=== PATIENT | female | born 1990 | race Caucasian/White ===

== ENCOUNTER → 2019-08-08 14:39 | Outpatient (BNVA) | payer OTHER, SELFPAY | PROVIDERS: Referring Provider Obstetrics & Gynecology Female Pelvic Medicine and Reconstructive Surgery; Visit Provider Obstetrics & Gynecology Female Pelvic Medicine and Reconstructive Surgery | DX: O20.9 Hemorrhage in early pregnancy, unspecified (principal); Z3A.09 9 weeks gestation of pregnancy | CPT/HCPCS: 76817; 80307; 84315; 85027; 86592; 86762; 86803; 86850; 86900; 87086; 87340; 87806 ==

== ENCOUNTER → 2019-08-23 15:06 | Outpatient (BNVA) | payer OTHER, SELFPAY | PROVIDERS: Visit Provider Nurse Practitioner Women's Health | DX: Z01.89 Encounter for other specified special examinations (principal) | CPT/HCPCS: 84315 ==

== ENCOUNTER → 2019-09-03 16:05 | Outpatient (BNVA) | payer OTHER, SELFPAY | PROVIDERS: Visit Provider Obstetrics & Gynecology Female Pelvic Medicine and Reconstructive Surgery | DX: Z34.90 Encounter for supervision of normal pregnancy, unspecified, unspecified trimester (principal); Z3A.12 12 weeks gestation of pregnancy | CPT/HCPCS: 76801; 84315; 87491; 87591; 87661; 88175 ==

== ENCOUNTER → 2019-10-25 13:05 | Outpatient (BNVA) | payer OTHER, SELFPAY | PROVIDERS: PCP Nurse Practitioner Family; Visit Provider Obstetrics & Gynecology | DX: O09.892 Supervision of other high risk pregnancies, second trimester (principal); O21.2 Late vomiting of pregnancy; O99.332 Smoking (tobacco) complicating pregnancy, second trimester; F17.210 Nicotine dependence, cigarettes, uncomplicated; O99.322 Drug use complicating pregnancy, second trimester; F12.90 Cannabis use, unspecified, uncomplicated; O99.342 Other mental disorders complicating pregnancy, second trimester; F41.9 Anxiety disorder, unspecified; O99.89 Other specified diseases and conditions complicating pregnancy, childbirth and the puerperium; Z3A.20 20 weeks gestation of pregnancy | CPT/HCPCS: 76805 ==

== ENCOUNTER → 2019-11-22 14:38 | Outpatient (BNVA) | payer OTHER, SELFPAY | PROVIDERS: PCP Nurse Practitioner Family; Visit Provider Obstetrics & Gynecology | DX: O99.321 Drug use complicating pregnancy, first trimester (principal); O99.332 Smoking (tobacco) complicating pregnancy, second trimester; F17.210 Nicotine dependence, cigarettes, uncomplicated | CPT/HCPCS: 80307; 84315 ==

== ENCOUNTER 2019-12-08 01:00 | Inpatient (IN) | payer OTHER, SELFPAY ==
[2019-12-07 21:49] VITALS: RESP 20; TEMP 36.2
[2019-12-07 22:15] VITALS: RESP 20
[2019-12-07] MEDS: ondansetron 2 mg/ML SDV 2 mL 4 MG IVP (22:15)
[2019-12-07] MEDS: sodium chloride 0.9% 1,000 ML 999 ML IV (22:15)
[2019-12-07] MEDS: morphine 4 mg/mL SDV 1 mL IVP ×3 (22:15→23:56)
[2019-12-07 22:34] LABS: Basophils # 0.1 10^3/uL (0.0-0.1); Basophils % 0.3 %; Eosinophils # 0.1 10^3/uL (0.0-0.8); Eosinophils % 0.7 %; Hematocrit 31.3 % (37.0-47.0); Hemoglobin 10.6 g/dL (11.5-15.3); Lymphocytes # 1.6 10^3/uL (0.8-4.8); Lymphocytes % 10.6 %; Mean Corpuscular HGB Conc 33.9 g/dL (30.0-36.0); Mean Corpuscular Hemoglobin 33.5 pg (28.0-34.0); Mean Corpuscular Volume 99.1 fL (81-99); Mean Platelet Volume 11.5 fL (7.4-10.4); Monocytes % 6.9 %; Neutrophils # 12.1 10^3/uL (1.8-7.7); Neutrophils % 80.8 %; Nucleated Red Blood Cells % 0 %; Platelet Count 207 10^3/cmm (130-400); Red Blood Count 3.16 10^6/uL (4.1-5.3); Red Cell Distribution Width 13.2 % (12.1-15.1)
[2019-12-07 22:41] LABS: Urine Appearance Hazy (CLEAR); Urine Color Yellow (Yellow); pH Urine 7 (5-7)
[2019-12-07 22:42] LABS: Amorphous Sediment Urine 4+; Bilirubin Urine Neg (NEGATIVE); Blood Urine Neg (Negative); Glucose Urine UA Norm (Normal); Ketones Urine 1+ (Negative); Leukocyte Esterase Urine Negative (Negative); Nitrate Urine Negative (Negative); Protein Urine Neg (Negative); Urobilinogen Urine Norm (Negative)
[2019-12-07 22:43] LABS: Add Urine Culture? No; Bacteria Urine TRACE; Hyaline Casts Urine 0-4; RBC Urine 0-4 /hpf (0-2); Squamous Epithelial Cell Urine 0-4 (0-5)
[2019-12-07 23:23] VITALS: RESP 18
[2019-12-07] MEDS: dextrose 5%-lactated ringers 1,000 ML 250 ML IV (23:24)
[2019-12-07 23:56] VITALS: RESP 16
[2019-12-08] VITALS (24 sets, daily range): BP systolic 119–140; BP diastolic 67–85; PULSE 74–87; RESP 15–20; TEMP 36.6–36.8; O2SAT 96
[2019-12-08] MEDS: morphine 4 mg/mL SDV 1 mL IVP ×17 (00:55→23:19)
[2019-12-08] MEDS: ondansetron 2 mg/ML SDV 2 mL 4 MG IVP ×4 (02:47→11:40)
[2019-12-08] MEDS: dextrose 5%-lactated ringers 1,000 ML 250 ML IV ×5 (04:48→20:03)
--- NOTE | 2019-12-08 06:47 | USR_ITS ---
PROCEDURE INFORMATION: Exam: US Retroperitoneal; Complete; Kidneys and Bladder Exam date and time: 12/08/2019 8:04 AM Age: 29 years old Clinical indication: Abdominal pain; Flank; Right; ; Additional info: Right sided flank pain - rule out stone TECHNIQUE: Imaging protocol: Real-time ultrasound of the retroperitoneum with image documentation. Complete exam focused on the kidneys and bladder. COMPARISON: US OB >= 14 weeks fetus [id number] 10/25/2019 1:05 PM FINDINGS: Right kidney: Right kidney measures 13.5 cm in length. Moderate right hydronephrosis, with dilatation of the incompletely visualized right ureter, measuring 14 mm in diameter. Left kidney: Left kidney measures 12.3 cm in length. Mild left hydronephrosis. Aorta: Normal caliber of the visualized proximal/mid abdominal aorta, with obscuration of the distal abdominal aorta by bowel gas. Uterus: Intrauterine gestation in cephalic presentation. Bladder: Nondistended bladder with a left ureteral jet on color flow imaging. A right ureteral jet was not visualized. US/US renal BI* [id number] IMPRESSION: Asymmetric bilateral hydronephrosis, right greater than left, with absence of a right ureteral jet on color flow imaging.
--- NOTE | 2019-12-08 10:13 | P.HP_ITS ---
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 Patient presented at 21:38 on 12/07/2019 with complaint of right side pain. She reports that she had onset of the pain at approximately 16:00 yesterday which was initially mild but rapidly worsened. She stated the pain would come in waves with it being a 7-8 out of 10 in intensity at its worst and would get to be about a 3 out of 10 in intensity at its best. She reported that nothing was really helping with the pain. She had tried taking Tylenol without help. She reported feeling nauseated after the pain started, but no vomiting. She denied having pains like this in the past. This morning, she states the pain is still present. The pain medications improve it but does not take it completely away. She reports continued nausea and now with vomiting since arriving at the hospital. She reports baby has been moving well. She does not think she is having contractions. She denied leaking of fluid. She denied vaginal bleeding. care has been provided by Dr. Way at [facility]. has been complicated by prepregnancy anxiety, tobacco use, and use of medical marijuana . OB Labs 08/08/2019 Blood type: O Positive Antibody screen: Negative Intake CBC: WBC 9.2 , Hgb 12.4, Hct 36.7, MCV 93.9, Plt 239. Rubella: 4.0--non-immune Hepatitis B surface antigen: Non-reactive Hepatitis C antibody: Non-reactive RPR: Nonreactive HIV: Non-reactive Urine drug screen: [facility] Positive Urine culture: 10,00-20,000 CFU, mixed organisms. Cystic fibrosis: Declines Panorama: Declines 09/03/2019 Gonorrhea: Negative. Chlamydia: Negative. Pap smear: Negative for intraepithelial lesion or malignancy. 09/26/2019 Quad screen: Declined. 11/22/2019 Urine drug screen: Positive THC. OB Ultrasound LMP 06/19/2019 ---> EDC 03/25/2020 (use first ultrasound for dating). 1. 08/03/2019 ---> 8-27 WG ---> EDC 03/12/2020. Use this ultrasound for dating. Performed at [facility]. 2. 08/08/2019 ---> 9-2/7 WG ---> EDC 03/10/2020. Performed at [facility]. CRL 2.52 cm. FHR 161 bpm. Large subchorionic hematoma measuring 4.6 x 1.6 cm. 3. 09/03/2019 ---> 12-5/7 WG ---> EDC 03/12/2020. Performed at [facility]. CRL 6.28 cm. FHR 142 bpm. Subchorionic hematoma measuring 5 to 8 mm. 4. 10/25/2019 ---> 20-2/7 WG ---> EDC 03/11/2020. EFW 12 oz (345 g) 54%. Performed at [facility]. Consistent with dates. Normal anatomic survey EXCEPT for poor visualization of kidneys. Female. Variable presentation. FHR 140 bpm. Fundal, right lateral placenta without previa. Grade 1. FISH CULTURIST 5.2 cm. Review of Systems Const: Denies: fever(s) or chills ENMT: Denies: throat pain or nasal congestion Card: Denies: chest pain, palpitations or lightheadedness Resp: Denies: dyspnea, productive cough, non-productive cough or wheezing GI: Reports: abdominal pain, nausea and vomiting; Denies: diarrhea or constipation : Denies: difficulty voiding, dysuria, urinary frequency, urinary urgency, hematuria, genital pruritis, vaginal bleeding or vaginal discharge Musc: Reports: back pain Neuro: Denies: headache(s), dizziness or seizure-like activity Psych: Reports: anxiety; Denies: depression Endo: Denies: polyuria or polydipsia Patrick/Lymph: Denies: easy bruising or easy bleeding Medications/Allergies Home Medications Medication Instructions Recorded Confirmed Last Taken Type vitamin #56-iron 35 mg 1 cap PO DAILY #30 cap 08/08/19 11/22/19 Unknown Rx and 5 mg-folic acid 1 mg-dha capsule ascorbate calcium (vitamin C) 500 500 mg PO DAILY 09/26/19 11/22/19 Unknown History mg tablet ferrous sulfate 325 mg (65 mg 325 mg PO DAILY 10/25/19 11/22/19 Unknown History iron) tablet,delayed release Allergies Allergy/AdvReac Type Severity Reaction Status Date / Time buspirone [From BuSpar] Allergy migraines Verified 11/22/19 14:35 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 PFSH: Medical History Anxiety Using medical marijuana Asthma PTSD (post-traumatic stress disorder) Surgical History Closed left arm fracture (~2000) Family History Grandmother Colon cancer great grandmother maternal Grandfather Heart disease maternal Social History (Updated 12/08/19 @ 10:[address] MD) Smoking and tobacco status: current every day smoker cigarettes Packs smoked per day: 0.5 [ Other cigarette details: started out at 3/4 ppd ] Alcohol intake: never Substance/Drug Use: current Substance/Drug use frequency: daily Other substance/drug use details: Medical marijuana Other Female Reproductive History: Hx Age of Menarche: 11 Duration of menses: 6-7 days Cycle Length: irregular 14-50 days Menstrual flow: normal/abnormal: abnormal History History History 1 Term 0 Miscarriages/Ectopic 0 0 Living Children 0 Care GONZALES Calculator Estimated Delivery Date Method Current WG Current Estimate 03/12/20 Ultrasound #1 26w 3d Other Estimates 03/25/20 LMP (Uncertain) 24w 4d 03/10/20 Ultrasound #2 26w 5d Expected Delivery Route/Plan Vaginal. Specific Issues/Plans * Tobacco use * Marijuana use * Anxiety * Rubella nonimmune Vitals/I&O/Wt Last Vital Signs Temp 97.1 F L 12/07/19 21:49 Pulse 74 12/08/19 05:07 Resp 18 12/08/19 08:34 BP 119/68 12/08/19 05:07 12/07/19 12/08/19 12/08/19 22:59 06:59 14:59 Intake Total 1999 1195.834 / 1195.834 Output Total 450 / 450 Balance 1550 / 1550 1195.834 / 1195.834 Weight last 48 hrs Weight 140 lb Physical Exam Const: COMMON NORMALS: no acute distress, average body habitus, alert and well nourished GENERAL APPEARANCE: well developed ORIENTATION/CONSCIOUSNESS: Yes oriented to person, Yes oriented to place and Yes oriented to time Neck/C-Spine: COMMON NORMALS: Thyroid normal GENERAL: Yes trachea midline THYROID: Thyroid normal Resp: COMMON NORMALS: normal respiratory effort and clear to auscultation bilaterally AUSCULTATION: clear to auscultation bilaterally Cardio: COMMON NORMALS: regular rate, regular rhythm, No gallops present (Cardio), No murmurs present (Cardio) and No rub (Cardio) RATE: regular rate RHYTHM: regular rhythm GI: COMMON NORMALS: Soft to palpation, No hepatosplenomegaly present and no masses (Except for nontender gravid uterus) AUSCULTATION: Yes normoactive bowel sounds PALPATION: Yes Soft to palpation, Yes Tenderness to palpation present (GI) (Moderate right flank and right lower quadrant), No Guarding due to palpation present (GI), Yes No hepatosplenomegaly present, No Hernia present and No Rebound tenderness present : EXTERNAL FEMALE EXAM: No Hernia present Back/Pelvis: COMMON NORMALS: no CVA tenderness (Left) GENERAL BACK: Yes CVA tenderness (Moderate) CVA tenderness: right Extremity: COMMON NORMALS: no clubbing, cyanosis or edema and no calf tendern ess Neuro: SENSORIUM/ORIENTATION: Yes alert, Yes oriented to person, Yes oriented to place and Yes oriented to time Psych: COMMON NORMALS: normal affect MOOD & AFFECT: Yes euthymic mood Skin: COMMON NORMALS: no rashes or lesions noted and turgor normal GENERAL SKIN EXAM: no rashes or lesions noted Data : 12/07/19 22:10 A&P Assessment and plan (1) Right flank pain: Patient with sudden onset right flank pain with right CVA pain on exam. She has no symptoms consistent with infection at this time. Urine done on admission did not show blood, but complete obstruction might prevent blood from being seen. Patient has continued to require frequent dosing of parenteral pain medication through the night (4 mg morphine about every 30 minutes to an hour). She is also had nausea and vomiting which is thought to be secondary to her pain. Based upon symptoms, I am suspicious for a ureteral stone. Renal ultrasound was performed this morning with findings of moderate hydronephrosis with hydrourete r. Due to the continued need for frequent parenteral pain medication and findings on ultrasound and exam this morning, I am ordering a limited view IVP (Auto Wrecker, 1 hour, and 3-hour post injection views) looking for obstruction. Depending upon findings, urology may be consulted for possible ureteral stent placement. Continue pain medications and antiemetics as needed. Continue IV hydration. CBC and CMP ordered for this morning. Status: Acute (2) Supervision of other high risk pregnancies, second trimester: at 26-3/7 weeks gestation. No evidence of contractions on NSTs. heart rate was appropriate for gestational age. Continue NSTs every shift. Status: Acute Attestations Medical Necessity Statement*: Patient with right flank pain suspicious for ureteral stone. She is currently requiring parenteral pain medication and antiemetics. Coding Level of Care Code Acute Supervisor Wet End for Derrick Kennedy Diagnoses Right flank pain R10.9 Supervision of other high risk pregnancies, second trimester O09.892
--- NOTE | 2019-12-08 10:28 | XRR_ITS ---
PROCEDURE INFORMATION: Exam: XR Urography With Contrast Exam date and time: 12/08/2019 3:31 PM Age: 29 years old Clinical indication: Symptoms: Right flank pain/nausea starting 12/05/19; Patient HX: PT is 26 wk , C/O right flank pain/nausea. Dr wanted limited ivp TECHNIQUE: Imaging protocol: XR urography with intravenous contrast, with or without tomography. Other contrast: iv - 100 ml omnipaque 300; COMPARISON: US renal BI* [id number] 12/08/2019 7:20 AM FINDINGS: Kidneys and ureters: There is severe bilateral hydronephrosis. The right ureter is dilated to the pelvis where there is a 5 mm calculus that appears to be creating the obstruction best seen on image 1004. The severe dilatation of the left ureter is at the sacral promontory. No left ureteral calculus is identified. The etiology of the left obstruction is not identified Bladder: Normal. The bladder is normal in size, shape, and contour. No filling defects are evident. There is minimal post-void residual. Other findings: The patient is . Fetus is in cephalic presentation. There is a large amount of stool in the right colon. Otherwise nonspecific bowel gas pattern. Radiologist was not present or supervised fluoroscopy. XR/XR IVP w KUB [id number] IMPRESSION: Severe bilateral hydronephrosis . There is a 5 mm calculus distal right ureter at the ureterovesical junction. No obstructing calculus is identified on the left. Etiology of the severe left hydronephrosis is not identified.
[2019-12-08 10:48] LABS: Basophils % 0.2 %; Eosinophils % 0.2 %; Hematocrit 30.8 % (37.0-47.0); Hemoglobin 10.2 g/dL (11.5-15.3); Lymphocytes # 0.9 10^3/uL (0.8-4.8); Lymphocytes % 7.9 %; Mean Corpuscular HGB Conc 33.1 g/dL (30.0-36.0); Mean Corpuscular Hemoglobin 33.1 pg (28.0-34.0); Mean Platelet Volume 11.2 fL (7.4-10.4); Monocytes # 0.7 10^3/uL (0.2-0.9); Monocytes % 6.1 %; Neutrophils # 9.5 10^3/uL (1.8-7.7); Neutrophils % 85.1 %; Nucleated Red Blood Cells % 0 %; Platelet Count 186 10^3/cmm (130-400); Red Blood Count 3.08 10^6/uL (4.1-5.3); Red Cell Distribution Width 13.6 % (12.1-15.1); White Blood Count 11.2 10^3/uL (4.0-10.0)
[2019-12-08 11:03] LABS: Anion Gap 13.6 (5-19); Blood Urea Nitrogen 7 mg/dL (6-20); Calcium 8.7 mg/dL (8.5-10.5); Carbon Dioxide 24 mmol/L (22-29); Chloride 105 mmol/L (98-107); Glomerular Filtration Rate 100.4 mL/min (90-130); Glucose 110 mg/dL (65-115); Osmolality Calculated 284 mOsm/kg (285-295); Potassium 3.6 mmol/L (3.5-5.1); Sodium 139 mmol/L (136-145)
[2019-12-08] MEDS: iohexol 300 mg/mL 50 mL Btl VAGINAL (11:54)
--- NOTE | 2019-12-08 12:20 | PC.NURSE ---
Patient Rounding This nurse assisted patient off floor via wheelchair to xray at this time. Significant other accompanied patient.
--- NOTE | 2019-12-08 13:20 | PC.NURSE ---
Patient Rounding This nurse assisted patient off floor to xray via wheelchair, significant other remained in patient's room.
--- NOTE | 2019-12-08 15:20 | PC.NURSE ---
Patient Rounding This nurse assisted patient off floor to xray via wheelchair, significant other accompanied.
--- NOTE | 2019-12-08 15:50 | P.CONIM_ITS ---
Providers/Reason For Consult Consulting Physican/Specialty*: Urology/[place] Reason for Consult*: Renal colic and female Attending Physician: Fabrice Way MD Primary Care Provider: Day Kaye History of Present Illness History of Present Illness Nicole Hummel is a 29 year old female who I evaluated for the first time today at the request of Dr. Way for suspicion of right ureteral obstruction at 27 weeks gestational age approximately for intrauterine . Symptoms were typical for renal colic and severe. Was requiring significant amount of parenteral narcotic for pain control. For that reason she underwent an abbreviated IVP with a director of digital technology film 1 hour film and a 2.5-hour film. A suspicious calcification was noted on the director of digital technology film. That 1 hour film showed actually bilateral hydronephrosis but the contrast seemed to be making it into the distal ureter and therefore at about 2 to 2-1/2 hours a follow-up film was performed as a post void showing that the calcification seen on the director of digital technology film was in fact IN the right distal ureter. She also displayed an intense nephrogram consistent with obstruction. This was not present on the left side. The stone measured about 5 mm in size. It was right at the ureterovesical junction. Review of Systems Const: Denies: fever(s) or chills Eyes: Denies: change in vision ENMT: Denies: throat pain Card: Denies: chest pain or palpitations Resp: Denies: dyspnea or non-productive cough GI: Reports: abdominal pain, nausea and vomiting; Denies: GI cramping : Reports: flank pain; Denies: dysuria Musc: Reports: back pain; Denies: neck pain Skin/Breast: Denies: rash Neuro: Reports: Slurred speech present and seizure-like activity Psych: Reports: anxiety; Denies: hopelessness or loss of interest Endo: Denies: polydipsia Patrick/Lymph: Denies: easy bruising or easy bleeding All/Imm: Denies: urticaria Meds/Allergies Home Medications and Allergies Home Medications Medication Instructions Recorded Confirmed Last Taken Type vitamin #56-iron 35 mg 1 cap PO DAILY #30 cap 08/08/19 11/22/19 Unknown Rx and 5 mg-folic acid 1 mg-dha capsule ascorbate calcium (vitamin C) 500 500 mg PO DAILY 09/26/19 11/22/19 Unknown History mg tablet ferrous sulfate 325 mg (65 mg 325 mg PO DAILY 10/25/19 11/22/19 Unknown History iron) tablet,delayed release Allergies Allergy/AdvReac Type Severity Reaction Status Date / Time buspirone [From BuSpar] Allergy migraines Verified 11/22/19 14:35 Current Medications Current Medications Generic Name Dose Route Start Last Admin Trade Name Freq PRN Reason Stop Dose Admin Dextrose/Lactated Ringer's 1,000 mls @ 250 mls/hr 12/07/19 23:00 12/08/19 13:50 Dextrose 5%-Lactated Ringers IV 250 mls/hr .Q4H LIGIA Infusion Morphine Sulfate 4 mg 12/07/19 22:58 12/08/19 15:33 Morphine IVP 4 mg Q30MIN PRN Administration SEVERE PAIN PFSH Acute PFSH: Medical History Anxiety Using medical marijuana Asthma PTSD (post-traumatic stress disorder) Surgical History Closed left arm fracture (~2000) Family History Grandmother Colon cancer great grandmother maternal Grandfather Heart disease maternal Social History Smoking and tobacco status: current every day smoker cigarettes Packs smoked per day: 0.5 [ Other cigarette details: started out at 3/4 ppd ] Alcohol intake: never Substance/Drug Use: current Substance/Drug use frequency: daily Other substance/drug use details: Medical marijuana Female Reproductive History: : 1 Vitals/I&O/Wt Last Vital Signs Temp 97.9 F 12/08/19 13:53 Pulse 80 12/08/19 13:52 Resp 20 H 12/08/19 15:33 BP 140/85 12/08/19 13:52 12/08/19 12/08/19 12/08/19 06:59 14:59 22:59 Intake Total 1999 2620.834 / 2620.834 Output Total 450 / 450 600 / 600 Balance 1550 / 1550 2020.834 / 2020.834 Weight last 48 hrs Weight 140 lb Physical Exam Const: COMMON NORMALS: no acute distress and patient oriented x3 GENERAL APPEARANCE: cooperative, comfortable and well kempt ORIENTATION/CONSCIOUSNESS: not confused HENMT: COMMON NORMALS: normocephalic and atraumatic HEAD & SCALP: normocephalic and atraumatic Eye: COMMON NORMALS: conjunctivae normal and negative for no scleral icterus CONJUNCTIVA: Yes conjunctivae normal Neck/C-Spine: COMMON NORMALS: full ROM GENERAL: Yes normal visual inspection Resp: COMMON NORMALS: normal respiratory effort EFFORT & INSPECTION: No labored and No Actively coughing Neuro: COMMON NORMALS: patient oriented x3 Psych: COMMON NORMALS: mental status grossly normal APPEARANCE: Yes well kempt ATTITUDE: Yes calm and Yes engaged A&P Assessment and plan (1) Right distal ureteral calculus: Approximately 5 mm right distal ureteral stone with obstructive changes on abbreviated IVP (patient is at approximately 27 weeks plus estimated gestational age). Typical severe pain without evidence of infection. Has been utilizing parenteral narcotics to control the pain. Based on the size and location of the stone it is reasonable to consider initial conservative approach with fluids and pain control with the hope of spontaneous passage. If the symptoms simply cannot be controlled then endoscopic evaluation with stent placement or if possible ureteroscopic stone extraction can be attempted. Recommend continuing clear liquids today and n.p.o. after midnight in case we have to do something tomorrow. I reviewed all the above with the patient and her significant other. They expressed understanding regarding options available and the critical points for decision making. At this point it appears that the symptoms can be managed reasonably well with parenteral narcotics and given the location of the stone hopefully she can pass it. We will review again in the morning Status: Acute (2) Right flank pain: Severe and secondary to right ureteral stone distally. Status: Acute (3) : Status: Acute Consult Attestations Medical Necessity Statement: Could not manage pain adequately on outpatient basis. Pain clearly related to the stone. May require surgical intervention. Coding Level of Care Code Acute Staff Rn for Derrick Kennedy Diagnoses Right distal ureteral calculus N20.1 Right flank pain R10.9 Z34.90
[2019-12-08] MEDS: ondansetron 2 mg/ML SDV 2 mL 8 MG IVP (19:33)
[2019-12-08] MEDS: metoclopramide 5 mg/mL SDV 2 mL 10 MG IVP (20:02)
[2019-12-09] VITALS (22 sets, daily range): BP systolic 108–139; BP diastolic 65–82; PULSE 80–89; RESP 16–18; TEMP 36.7–37.1; O2SAT 96
[2019-12-09] MEDS: morphine 4 mg/mL SDV 1 mL IVP ×13 (00:11→23:48)
[2019-12-09] MEDS: dextrose 5%-lactated ringers 1,000 ML 250 ML IV ×6 (00:11→20:58)
[2019-12-09] MEDS: metoclopramide 5 mg/mL SDV 2 mL 10 MG IVP ×4 (02:54→20:21)
[2019-12-09] MEDS: ondansetron 2 mg/ML SDV 2 mL 8 MG IVP ×2 (02:55→12:22)
--- NOTE | 2019-12-09 08:05 | PM.PN ---
Subjective Subjective: Interval history: UROLOGY follow-up: Yesterday she elected to wait to see if she could pass the stone. The hope was that she would be able to control her pain adequately even to the point of considering outpatient management. The stone is located at the right UVJ with obstructive changes but is deemed to be a size it is reasonable for expectation of passage. This morning she is still interested in conservative management with the idea that if by tomorrow it has not passed she would be willing to consent to intervention. Benefits and risks of that decision making were thoroughly discussed. We will place her on clear liquids this morning and advance her diet if she chooses. If she changes her mind and desires endoscopic intervention there will be a delay based on her last clear liquid intake. Medications: Reviewed: Yes Vitals/I&O/Wt Last Vital Signs Temp 98.1 F 12/09/19 05:45 Pulse 89 12/09/19 05:45 Resp 16 12/09/19 07:01 BP 120/74 12/09/19 05:45 Pulse Ox 96 12/09/19 05:45 12/08/19 12/09/19 12/09/19 22:59 06:59 14:59 Intake Total 1554.166 / 4175.000 1991.667 / 6166.667 Output Total 1280 / 1880 1050 / 2930 250 / 250 Balance 274.166 / 2295.000 941.667 / 3236.667 -250 / -250 Weight last 48 hrs Weight 140 lb Physical Exam Const: COMMON NORMALS: no acute distress and patient oriented x3 EXAM LIMITATIONS: no altered mental status HENMT: COMMON NORMALS: normocephalic HEAD & SCALP: normocephalic Neck/C-Spine: OTHER: Good range of motion Resp: EFFORT & INSPECTION: No tachypneic and No respiratory distress Neuro: COMMON NORMALS: patient oriented x3 Psych: COMMON NORMALS: mental status grossly normal and speech normal APPEARANCE: Yes grossly normal ATTITUDE: Yes calm and Yes engaged SPEECH: Yes normal speech Data : 12/08/19 10:33 12/08/19 10:33 A&P Assessment and plan (1) Right distal ureteral calculus: No spontaneous passage as of yet. Still with intermittent flank pain requiring parenteral narcotics. She would like to give it more time to see if she could pass the stone. Tentatively plan for tomorrow if no progress. If she changes her mind we can work her onto the schedule today as long as dietary restraints have been followed Status: Acute (2) Right flank pain: Status: Acute Attestations Medical Necessity Statement*: Refractory pain from right distal ureteral stone. Requiring parenteral narcotics. Not able to wean to oral medication yet Coding Level of Care Code Acute Recreational Leader for Derrick Kennedy Diagnoses Right distal ureteral calculus N20.1 Right flank pain R10.9
--- NOTE | 2019-12-09 13:32 | P.PN_ITS ---
Subjective Subjective: Interval history: Reports continued pain, not quite as bad as yesterday. Still getting nauseated at times but better since adding the scheduled Reglan. Reports is still not passed the stone. She denies headaches. She denies lightheadedness or dizziness. She denies shortness of breath or chest pains. She reports baby has been moving well. She denied vaginal bleeding. She denied contractions. Vitals/I&O/Wt Last Vital Signs Temp 98.6 F 12/09/19 10:06 Pulse 83 12/09/19 10:03 Resp 16 12/09/19 12:13 BP 130/74 12/09/19 10:03 Pulse Ox 96 12/09/19 05:45 12/08/19 12/09/19 12/09/19 22:59 06:59 14:59 Intake Total 1554.166 / 4175.000 1991.667 / 6166.667 1999 Output Total 1280 / 1880 1050 / 2930 1075 / 1075 Balance 274.166 / 2295.000 941.667 / 3236.667 925 / 925 Weight last 48 hrs Weight 140 lb Physical Exam Const: COMMON NORMALS: no acute distress, average body habitus, alert and well nourished GENERAL APPEARANCE: well developed ORIENTATION/CONSCIOUSNESS: Yes oriented to person, Yes oriented to place and Yes oriented to time Resp: COMMON NORMALS: normal respiratory effort and clear to auscultation bilaterally AUSCULTATION: clear to auscultation bilaterally Cardio: COMMON NORMALS: regular rate, regular rhythm, No gallops present (Cardio), No murmurs present (Cardio) and No rub (Cardio) RATE: regular rate RHYTHM: regular rhythm GI: COMMON NORMALS: Soft to palpation, No hepatosplenomegaly present and no masses (Except for nontender gravid uterus) AUSCULTATION: Yes normoactive bowel sounds PALPATION: Yes Soft to palpation, Yes Tenderness to palpation present (GI) Details: RLQ (And flank pain), Yes No hepatosplenomegaly present and No Hernia present : COMMON NORMALS: Yes no CVA tenderness (Left) BLADDER/KIDNEY EXAM: Yes no CVA tenderness (Left) and Yes CVA tenderness EXTERNAL FEMALE EXAM: No Hernia present Back/Pelvis: COMMON NORMALS: no CVA tenderness (Left) GENERAL BACK: Yes CVA tenderness CVA tenderness: right Extremity: COMMON NORMALS: no clubbing, cyanosis or edema and no calf tenderness Neuro: SENSORIUM/ORIENTATION: Yes alert, Yes oriented to person, Yes oriented to place and Yes oriented to time Psych: COMMON NORMALS: normal affect MOOD & AFFECT: Yes euthymic mood Data : 12/08/19 10:33 12/08/19 10:33 A&P Assessment and plan (1) Right distal ureteral calculus: Patient admitted with right CVA pain, flank pain, and right lower quadrant pain. Prior ultrasound had shown moderate hydronephrosis of the right kidney. Due to need for significant parenteral pain medication, limited IVP was performed with documented distal left ureteral stone. Dr. Falcon, urology, was consulted yesterday. Per his note and my discussion with the patient today, patient has decided to give it more time to see if the stone will pass on its own. However, at this point, if it has not passed by Tuesday morning, 12/09, patient reports she will most likely go ahead and proceed with surgical treatment. Patient has reported some improvement in her pain and is taking morphine every 1-1/2 to 2 hours, which is down from yesterday. Discussed with patient starting oral medication with the use of IV medication for breakthrough pain since the oral will typically give longer duration of pain relief over the IV. Questions were answered. Patient would like to give this a try. Start OxyIR with IV morphine for breakthrough pain. Status: Acute (2) Supervision of other high risk pregnancies, second trimester: at 26-4/7 weeks gestation. No problems from a standpoint. heart rate remains appropriate for gestational age on NSTs. No contractions noted. Status: Acute Attestations Medical Necessity Statement*: Patient is 26 weeks with ureteral obstruction from distal ureteral stone. Patient being treated with IVF hydration, parenteral pain medication and parenteral anti-emetics. 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
[2019-12-09] MEDS: oxyCODONE 5 mg IR Tab/Cap PO ×3 (14:08→20:57)
[2019-12-09] MEDS: terbutaline 1 mg/mL INJ 0.25 MG SUBCUT (23:00)
[2019-12-10] VITALS (23 sets, daily range): BP systolic 117–168; BP diastolic 70–96; PULSE 82–110; RESP 16–18; TEMP 36.8–37.6; O2SAT 84–100
[2019-12-10] MEDS: oxyCODONE 5 mg IR Tab/Cap PO ×4 (01:03→14:56)
[2019-12-10] MEDS: dextrose 5%-lactated ringers 1,000 ML 250 ML IV ×3 (01:05→09:14)
[2019-12-10] MEDS: morphine 4 mg/mL SDV 1 mL IVP ×3 (01:40→08:05)
[2019-12-10] MEDS: metoclopramide 5 mg/mL SDV 2 mL 10 MG IVP ×3 (02:19→14:57)
--- NOTE | 2019-12-10 06:57 | PM.PN ---
Subjective Subjective: Interval history: Urology follow-up: Has not passed the stone. Still having requirement for regular parenteral narcotics. Not a candidate for discharge for conservative therapy at home. She has requested to proceed with intervention. I think that is reasonable. The risks benefits alternatives discussed in detail. Informed consent today obtained for a cystoscopy, RIGHT: Stent, possible ureteroscopy laser Vitals/I&O/Wt Last Vital Signs Temp 98.2 F 12/10/19 05:08 Pulse 86 12/10/19 05:08 Resp 16 12/10/19 05:48 BP 139/91 12/10/19 05:08 Pulse Ox 96 12/09/19 05:45 12/09/19 12/09/19 12/10/19 14:59 22:59 06:59 Intake Total 1999 1966.667 / 3966.667 199966.66 Output Total 1325 / 1325 / 1975 1100 / 3075 Balance 675 / 675 1316.667 / 1990.667 900 / 2891.667 Physical Exam Const: COMMON NORMALS: no acute distress, alert and well nourished GENERAL APPEARANCE: well kempt and well developed ORIENTATION/CONSCIOUSNESS: not confused HENMT: COMMON NORMALS: normocephalic and atraumatic HEAD & SCALP: normocephalic and atraumatic Eye: COMMON NORMALS: conjunctivae normal and no scleral icterus CONJUNCTIVA: Yes conjunctivae normal Neck/C-Spine: GENERAL: Yes normal visual inspection Resp: COMMON NORMALS: normal respiratory effort EFFORT & INSPECTION: No labored and No Actively coughing Neuro: SENSORIUM/ORIENTATION: Yes alert Psych: COMMON NORMALS: mental status grossly normal APPEARANCE: Yes grossly normal and Yes well kempt ATTITUDE: Yes calm and Yes engaged Data : 12/08/19 10:33 12/08/19 10:33 A&P Assessment and plan (1) : Status: Acute (2) Right distal ureteral calculus: Status: Acute (3) Right flank pain: Status: Acute Attestations Medical Necessity Statement*: Refractory symptoms with failure to pass a stone. 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
--- NOTE | 2019-12-10 12:05 | SUR.PREOP ---
heart tones measured at 136 by Ob in pre op.
--- NOTE | 2019-12-10 12:06 | ANES.PREANE2 ---
Pre-Anesthetic Assessment Pre-Anesthetic Assessment: Height/Weight: Height 1.57 m Weight 63.503 kg Temp Pulse Resp BP Pulse Ox 99.7 F H 88 18 148/90 91 12/10/19 11:39 12/10/19 11:39 12/10/19 11:39 12/10/19 11:39 12/10/19 11:39 Proposed Procedure: Operation Date: 12/10/19 14:35 Proposed Procedures p Cystoscopy(Not Applicable) - Prince Falcon MD s Ureteral Stent Placement, possble ureteroscopy, laser(Right) - Prince Falcon MD Last intake: Intake Last Solid Date 12/10/19 Social: Social History: No alcohol and No tobacco Exam: Pre-Anes Outpt Exam: alert, oriented x 3, clear to auscultation bilaterally and regular rate & rhythm Airway: Submandibular: WNL Cervical ROM: WNL MP: 1 Dentition: Other (teeth ok) History/ROS: No significant history except as noted Pulmonary: Pulmonary: Asthma (mild) CV/HEM: CV/HEM: None reported : Comments: stones Hepatic: Hepatic: None reported GI: GI: None reported Metabolic: Metabolic: None reported Musc/skel: Musc/skel: None reported Neuropsych: Neuropsych: None reported Anesthetic Plan: ASA status: 2 Anesthesia: General Risk of > 500 ml blood loss (7ml/kg in children): No Meds/Allergies Current Medications: Current Medications Generic Name Dose Route Start Last Admin Trade Name Freq PRN Reason Stop Dose Admin Dextrose/Lactated Ringer's 1,000 mls @ 250 m ls/hr 12/07/19 23:00 12/10/19 11:30 Dextrose 5%-Lact ated Ringers IV 0 mls/hr .Q4H LIGIA Infusion Metoclopramide HCl 10 mg 12/09/19 09:00 12/10/19 09:09 Reglan IVP 10 mg Q6H LIGIA Administration Morphine Sulfate 2 - 4 mg 12/09/19 13:29 12/10/19 08:05 Morphine IVP 4 mg Q30MIN PRN Administration BREAKTHROUGH PAIN Ondansetron HCl 8 mg 12/08/19 19:30 12/09/19 12:22 Zofran IVP 8 mg Q8H PRN Administration NAUSEA AND VOMITI NG Oxycodone HCl 5 - 10 mg 12/09/19 13:25 12/10/19 09:08 Oxycodone Ir PO 10 mg Q4H PRN Administration MODERATE TO SEVER E PAIN PFSH Anesthesia PFSH: Medical History Anxiety Using medical marijuana Asthma PTSD (post-traumatic stress disorder) Surgical History Closed left arm fracture (~2000) Family History Grandmother Colon cancer great grandmother maternal Grandfather Heart disease maternal Social History Smoking and tobacco status: current every day smoker cigarettes Packs smoked per day: 0.5 [ Other cigarette details: started out at 3/4 ppd ] Alcohol intake: never Substance/Drug Use: current Substance/Drug use frequency: daily Other substance/drug use details: Medical marijuana Female Reproductive History: : 1 Data Anesthesia CBC & Chem 7: 12/08/19 10:33 12/08/19 10:33 Cardiac Studies: No Data to Display
--- NOTE | 2019-12-10 12:10 | PC.NURSE ---
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
[2019-12-10] MEDS: sodium chloride 0.9% 1,000 ML 30 ML IV (12:13)
[2019-12-10] MEDS: ceFAZolin 1,000 MG in sodium chloride 0.9% (plus) 50 ML 100 MG IV (12:17)
[2019-12-10] MEDS: iohexol 300 mg/mL 50 mL Btl (OR ONLY) XX (12:37)
--- NOTE | 2019-12-10 13:02 | PM.OP ---
Operative Report Date of procedure: December 10, 2019 Pre-op Diagnosis: Refractory right distal obstructing ureteral stone and patient Post-op diagnosis: same Procedure Done: 1. Cystoscopy, right ureteroscopy lithotripsy with stent (7 [place] by 26 cm double-pigtail with string attached distally) Implants: Right ureteral stent Pathology: Stone fragments Surgeon: Ezekiel Anesthesia: General (Clifton Bagley CRNA) Estimated blood loss: Minimal Urine output: Not measured Complications: None Findings: 1. Stone in expected position. 2. Guidewire easily passed 3. Fragmented with laser due to too large to pull out intact 4. 7 [place] by 26 cm double-pigtail stent left indwelling Condition: stable Disposition: PACU Brief History: Nicole is a very pleasant 29-year-old white female who I evaluated for the first time a couple days ago with refractory right renal colic secondary to what was felt to be a stone in the right ureter. Initial therapy was conservative with hopes of spontaneous passage release controlling the the pain well enough to be able to continue conservative management on outpatient basis. This was not possible and ultimately she underwent a 3 shot IVP that showed a stone in the right distal ureter near the UVJ. High-grade obstruction was noted. She ultimately elected to treat the stone endoscopically after another 24 hours of extended conservative management failed to yield symptomatic relief or spontaneous passage.. Procedure: After routine preoperative evaluation examination and obtaining of informed consent she was taken to the operating suite on 12/10/2019 where general anesthesia was administered without difficulty after appropriate timeout was performed, SCDs confirmed to be functioning, preoperative antibiotics administered, beta-camilo protocol confirmed. Prepped and draped in the usual sterile fashion in dorsolithotomy position pain careful attention to avoiding pressure points. 21 [place] cystoscope with 30 degree lens was introduced into the urethral meatus and advanced into the bladder under videoscopy. The bladder was carefully examined and no stones were seen. A flexible tip guidewire was then advanced up the left ureter with some resistance but then easily bypassing the area of the stone and passing the appropriate distance for the renal pelvis. The distal ureter appeared to be narrowed and for that reason a 15 [place] 4 cm balloon was passed to just below the expected level of the stone and the balloon inflated. 6 leola of pressure utilized. Single shot pulse fluoroscopy confirmed the balloon fully inflated to just below the stone. The wire was secured to the drapes as a safety wire and an offset semirigid ureteroscope was advanced easily up the right ureter where the stone was encountered security grasping forceps but too large to pull out intact. Fragmentation with a 365 ?m holmium laser fiber was performed and all the fragments were then removed with combination of grasping forceps and parachute basket. Final inspection residual stones. There was quite a bit of inflammation where the stone had been impacted and for that reason it was decided to leave a temporary stent and a 7 [place] by 26 cm double-pigtail stent with string attached distally was passed easily over the guidewire into appropriate position with a single shot pulse to fluoroscopy confirming appropriate proximal location. The distal aspect was confirmed to be in appropriate position of the bladder. Bladder was drained. The string was shortened and divided. The fragments were sent for pathologic evaluation. She tolerated procedure well without complications and was awakened in the operating room and returned to the recovery in stable condition. PLANS: 1. Cover with antibiotics until the stent comes out 2. Return to clinic early next week for stent removal in my office
--- NOTE | 2019-12-10 13:26 | SUR.PHASEI ---
1314 PT AWAKE ALERT TALKATIVE PT HT TONES CHECKED BY OB RN, RATE 124. PT ALERT TALKATIVE NOW ON RA, VSS
--- NOTE | 2019-12-10 17:32 | PC.NURSE ---
sediment noted when straining urine 400mL output of urine
[2019-12-10] MEDS: cephALEXin 500 mg Capsule PO (18:07)
--- NOTE | 2019-12-10 18:36 | P.DS_ITS ---
Discharge Providers CLOTHING EXAMINER Date of Admission: 12/07/19 Date of Discharge: 12/10/19 Attending Provider at Admission: Fabrice Way MD Attending Provider at Discharge: Fabrice Way MD Consults: Dr. Falcon Primary Care Provider: Day Kaye Diagnoses at Discharge Discharge Diagnosis (1) Right distal ureteral calculus: Status: Acute (2) Supervision of other high risk pregnancies, second trimester: Status: Acute Reason for Visit Reason for Visit: abd pain Physical Exam Const: COMMON NORMALS: no acute distress, average body habitus, alert and well nourished GENERAL APPEARANCE: well developed ORIENTATION/CONSCIOUSNESS: Yes oriented to person, Yes oriented to place and Yes oriented to time GI: COMMON NORMALS: Soft to palpation, No hepatosplenomegaly present and no masses (except for non-tender gravid uterus) AUSCULTATION: Yes normoactive bowel sounds PALPATION: Yes Soft to palpation, Yes No hepatosplenomegaly present and No Hernia present : EXTERNAL FEMALE EXAM: No Hernia present Neuro: SENSORIUM/ORIENTATION: Yes alert, Yes oriented to person, Yes oriented to place and Yes oriented to time Psych: COMMON NORMALS: normal affect MOOD & AFFECT: Yes euthymic mood Discharge Data Data Completed and Pending: Completed Studies During Hospitalization Category Date Time Status XR IVP w KUB 7440 0 Urgent Exams 12/08/19 10:28 Completed US renal BI* [id number] 0 Stat Ultrasound 12/08/19 06:47 Completed Pending at discharge Category Date Time Status Stone Analysis Ro utine Lab 12/10/19 13:14 Ordered Pathology: Surgic al [PTH] Routine Pth 12/10/19 13:14 Ordered Labs from last 24 hours 12/10/19 11:21 Blood Type O Positive Rho(D) Type Positive Antibody Screen Negative Vitals: Last Vital Signs Temp 98.3 F 12/10/19 18:10 Pulse 110 H 12/10/19 18:10 Resp 17 12/10/19 18:10 BP 124/74 12/10/19 18:10 Pulse Ox 95 12/10/19 18:10 Discharge Plan Discharge Patient Disposition: Home, Self-Care Condition: Stable Prescriptions: Continued PNV #[id number] acid-dha 35 mg iron-5 mg iron-1 mg capsule 1 cap PO DAILY Qty: 30 RF: 4 ascorbate calcium (vitamin C) 500 mg tablet 500 mg PO DAILY RF: 0 ferrous sulfate 325 mg (65 mg iron) tablet,delayed release (DR/EC) 325 mg PO DAILY RF: 0 Discharge Orders: Discharge Order (Routine); Ordered 12/10/19 Ordered By: Fabrice Way Referrals: Prince Falcon MD [Physician] - 1 week (Please Call Dr. King office first thing tomorrow morning and make an appointment for stent to be removed in one week. 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
[2019-12-15 02:15] LABS: Stone Source RIGHT URETERAL STONE
== END 2019-12-10 19:09 | disposition home or self-care (01) | DRG 818 ==
LOC: OPOB 07:38 → OBGYN 07:38
PROVIDERS: Urology; Admitting Provider Obstetrics & Gynecology; PCP Nurse Practitioner Family; Visit Provider Obstetrics & Gynecology
PROC: 0TJB8ZZ Inspection of Bladder, Via Natural or Artificial Opening Endoscopic (ICD-10-PCS; CPT 52000; principal; 2019-12-10 14:25)
PROC: 0TJ98ZZ Inspection of Ureter, Via Natural or Artificial Opening Endoscopic (ICD-10-PCS; CPT 52351; 2019-12-10 14:25)
PROC: 0T768DZ Dilation of Right Ureter with Intraluminal Device, Via Natural or Artificial Opening Endoscopic (ICD-10-PCS; CPT 50605; 2019-12-10 14:25)
DX: O26.892 Other specified pregnancy related conditions, second trimester (principal); N20.1 Calculus of ureter; Z3A.27 27 weeks gestation of pregnancy; O99.332 Smoking (tobacco) complicating pregnancy, second trimester; F17.210 Nicotine dependence, cigarettes, uncomplicated; O99.342 Other mental disorders complicating pregnancy, second trimester; F41.9 Anxiety disorder, unspecified; O99.322 Drug use complicating pregnancy, second trimester; F12.90 Cannabis use, unspecified, uncomplicated
CPT/HCPCS: 12345; 36415; 59025; 74400; 76770; 80048; 81001; 82365; 85025; 86850; 86900; 88300; 96365; 96372; 96375; 99211; C1725; C2625; G0378; J0330; J0690; J2270; J2405; J2704; J2765; J3010; J3105; J7030; Q9967

== ENCOUNTER → 2019-12-19 15:31 | Outpatient (BNVA) | payer OTHER, SELFPAY | PROVIDERS: PCP Nurse Practitioner Family; Visit Provider Urology | DX: N20.1 Calculus of ureter (principal) | CPT/HCPCS: 81001 ==

== ENCOUNTER → 2019-12-20 09:01 | Outpatient (BNVA) | payer OTHER, SELFPAY | PROVIDERS: PCP Nurse Practitioner Family; Visit Provider Obstetrics & Gynecology | DX: O99.343 Other mental disorders complicating pregnancy, third trimester; O99.333 Smoking (tobacco) complicating pregnancy, third trimester; F41.9 Anxiety disorder, unspecified; F12.90 Cannabis use, unspecified, uncomplicated; F17.210 Nicotine dependence, cigarettes, uncomplicated; O99.89 Other specified diseases and conditions complicating pregnancy, childbirth and the puerperium; Z3A.28 28 weeks gestation of pregnancy; N20.1 Calculus of ureter | CPT/HCPCS: 82950; 84315 ==

== ENCOUNTER → 2020-01-18 11:30 | Outpatient (BNVA) | payer OTHER, SELFPAY | PROVIDERS: PCP Nurse Practitioner Family; Visit Provider Nurse Practitioner Women's Health | DX: O99.321 Drug use complicating pregnancy, first trimester (principal); Z3A.00 Weeks of gestation of pregnancy not specified | CPT/HCPCS: 80307; 84315 ==

== ENCOUNTER → 2020-02-15 13:03 | Outpatient (BNVA) | payer OTHER, SELFPAY | PROVIDERS: PCP Nurse Practitioner Family; Visit Provider Obstetrics & Gynecology | DX: O09.893 Supervision of other high risk pregnancies, third trimester (principal); O99.013 Anemia complicating pregnancy, third trimester; Z3A.00 Weeks of gestation of pregnancy not specified | CPT/HCPCS: 84315; 85027; 87081 ==

== ENCOUNTER 2020-03-03 19:00 | Inpatient (IN) | payer OTHER, SELFPAY ==
[2020-03-03] VITALS (39 sets, daily range): BP systolic 0–166; BP diastolic 0–97; PULSE 83–112; RESP 18; TEMP 36.8–37.2; BMI 29.9
[2020-03-03 18:13] LABS: Nitrazine Paper, PH Negative
[2020-03-03 18:19] LABS: Alanine Aminotransferase 7 U/L (0-33); Albumin Level 3.3 g/dL (3.5-5.2); Alkaline Phosphatase 198 IU/L (35-105); Anion Gap 14.6 (5-19); Aspartate Amino Transferase 13 U/L (0-32); Blood Urea Nitrogen 8 mg/dL (6-20); Calcium 8.9 mg/dL (8.5-10.5); Carbon Dioxide 20 mmol/L (22-29); Chloride 104 mmol/L (98-107); Globulin 2.9 g/dL (1.3-4.6); Glomerular Filtration Rate 146.9 mL/min (90-130); Glucose 89 mg/dL (65-115); Osmolality Calculated 278 mOsm/kg (285-295); Potassium 3.6 mmol/L (3.5-5.1); Sodium 135 mmol/L (136-145); Total Bilirubin 0.2 mg/dL (0.15-1.2); Total Protein 6.2 g/dL (6.6-8.7)
[2020-03-03 18:20] LABS: Basophils % 0.2 %; Eosinophils % 0.3 %; Hematocrit 34.2 % (37.0-47.0); Hemoglobin 11.2 g/dL (11.5-15.3); Lymphocytes # 1.6 10^3/uL (0.8-4.8); Lymphocytes % 17.6 %; Mean Corpuscular HGB Conc 32.7 g/dL (30.0-36.0); Mean Corpuscular Hemoglobin 32.7 pg (28.0-34.0); Mean Corpuscular Volume 99.7 fL (81-99); Mean Platelet Volume 13.3 fL (7.4-10.4); Monocytes # 0.7 10^3/uL (0.2-0.9); Monocytes % 7.4 %; Neutrophils # 6.81 10^3/uL (1.8-7.7); Neutrophils % 73.8 %; Nucleated Red Blood Cells % 0 %; Platelet Count 141 10^3/cmm (130-400); Red Blood Count 3.43 10^6/uL (4.1-5.3); Red Cell Distribution Width 14.6 % (12.1-15.1); White Blood Count 9.2 10^3/uL (4.0-10.0)
[2020-03-03 18:24] LABS: Glucose Urine UA Norm (Normal); Ketones Urine Negative (Negative); Protein Urine Trace (Negative); Specific Gravity, Urine 1.025 (1.005-1.030); Urine Appearance Clear (CLEAR); Urine Color Yellow (Yellow); pH Urine 6.5 (5-7)
[2020-03-03 18:25] LABS: Add Urine Microscopic? YES; Bilirubin Urine Neg (Negative); Blood Urine 2+ (Negative); Leukocyte Esterase Urine Negative (Negative); Nitrate Urine Negative (Negative); Urobilinogen Urine Norm (Negative)
[2020-03-03 18:43] LABS: Actim Prom Negative
[2020-03-03 18:47] LABS: Urine Creatinine 182 mg/dL (28-217)
[2020-03-03 18:48] LABS: UPRO/UCREAT Ratio 0.16 mg/mg CR; Urine Protein Random 29 mg/dL
[2020-03-03 18:53] LABS: Add Urine Culture? Yes; Bacteria Urine TRACE /hpf; Mucus Urine 1+ /hpf; Squamous Epithelial Cell Urine 0-4 /hpf (0-5)
[2020-03-03 20:22] LABS: Basophils % 0.2 %; Eosinophils % 0.4 %; Hematocrit 34.2 % (37.0-47.0); Hemoglobin 11.4 g/dL (11.5-15.3); Lymphocytes # 1.7 10^3/uL (0.8-4.8); Lymphocytes % 18.4 %; Mean Corpuscular HGB Conc 33.3 g/dL (30.0-36.0); Mean Corpuscular Hemoglobin 33.1 pg (28.0-34.0); Mean Corpuscular Volume 99.4 fL (81-99); Mean Platelet Volume 12.6 fL (7.4-10.4); Monocytes # 0.7 10^3/uL (0.2-0.9); Monocytes % 7.3 %; Neutrophils # 6.92 10^3/uL (1.8-7.7); Neutrophils % 73.2 %; Nucleated Red Blood Cells % 0 %; Platelet Count 148 10^3/cmm (130-400); Red Blood Count 3.44 10^6/uL (4.1-5.3); Red Cell Distribution Width 14.6 % (12.1-15.1); White Blood Count 9.5 10^3/uL (4.0-10.0)
[2020-03-03] MEDS: dextrose 5%-lactated ringers 1,000 ML 125 ML IV (20:54)
[2020-03-03] MEDS: ampicillin 2,000 MG in sodium chloride 0.9% (plus) 50 ML 100 MG IV (20:55)
[2020-03-03] MEDS: miSOPROStol 100 mcg tablet 25 MCG VAGINAL (20:56)
[2020-03-03 21:56] LABS: Amphetamines Screen Urine Negative (Negative); Barbiturates Screen Urine Negative (Negative); Benzodiazepines Screen Urine Negative (Negative); Cocaine Screen Urine Negative (Negative); Opiate Screen Urine Negative (Negative); PCP Screen Urine Negative (Negative); THC Screen Urine Positive (Negative)
[2020-03-04] VITALS (137 sets, daily range): BP systolic 0–178; BP diastolic 0–107; PULSE 66–105; RESP 14–18; TEMP 36.7–37; O2SAT 90–99
[2020-03-04] MEDS: ampicillin 1,000 MG in sodium chloride 0.9% (plus) 50 ML 100 MG IV ×5 (01:10→17:10)
[2020-03-04] MEDS: dextrose 5%-lactated ringers 1,000 ML 125 ML IV ×2 (05:15→13:21)
[2020-03-04] MEDS: oxytocin 30 UNIT/500 ML BAG IV (06:58)
[2020-03-04] MEDS: lactated ringers 1,000 ML 999 ML IV (07:45)
--- NOTE | 2020-03-04 08:15 | ANES.PAUD2 ---
Pre-Anesthetic Update Pre-Anesthetic Assessment: Date of Surgery/Procedure: 03/04/20 Preop Diagnosis: Refractory right distal obstructing ureteral stone and patient Any changes to Pre-Anesthetic Assessment?: Yes (admitted for [facility]) Labs Last 48hrs: Laboratory Results - last 48 hr 03/03/20 03/03/20 03/03/20 17:10 17:10 17:10 WBC 9.2 RBC 3.43 L Hgb 11.2 L Hct 34.2 L MCV 99.7 H MCH 32.7 MCHC 32.7 RDW 14.6 Plt Count 141 MPV 13.3 H Neut % (Auto) 73.8 Lymph % (Auto) 17.6 [place] % (Auto) 7.4 Eos % (Auto) 0.3 Baso % (Auto) 0.2 Neut # (Auto) 6.81 Lymph # (Auto) 1.6 [place] # (Auto) 0.7 Eos # (Auto) 0.0 Baso # (Auto) 0.0 Nucleated RBC % (a uto) 0 Nucleated RBCs # 0.0 Sodium 135 L Potassium 3.6 Chloride 104 Carbon Dioxide 20 L Anion Gap 14.6 BUN 8 Creatinine 0.5 GFR Calculation 146.9 H Glucose 89 Calculated Osmolal ity 278 L Uric Acid 5.0 Calcium 8.9 Total Bilirubin 0.2 AST 13 ALT 7 Alkaline Phosphata se 198 H Total Protein 6.2 L Albumin 3.3 L Globulin 2.9 Insulin-like GF I Urine Color Yellow Urine Appearance Clear Urine pH 6.5 Ur Specific Gravit y 1.025 Urine Protein Trace Urine Glucose (UA) Norm Urine Ketones Negative Urine Blood 2+ H Urine Nitrate Negative Urine Bilirubin Neg Urine Urobilinogen Norm Ur Leukocyte Chanel ase Negative Urine RBC 10-15 H Urine WBC None Ur Squamous Epith Cells 0-4 H Amorphous Sediment Not Reportable Urine Bacteria Trace Hyaline Casts 5-10 H Urine Mucus 1+ U Random Total Pro tein Urine Creatinine Protein/Creatinin Ratio Urine Opiates Scre en Ur Barbiturates Sc reen Ur Phencyclidine S crn Ur Amphetamines Sc reen U Benzodiazepines Scrn Urine Cocaine Scre en U Marijuana (THC) Screen 03/03/20 03/03/20 03/03/20 17:10 17:10 18:10 WBC RBC Hgb Hct MCV MCH MCHC RDW Plt Count MPV Neut % (Auto) Lymph % (Auto) [place] % (Auto) Eos % (Auto) Baso % (Auto) Neut # (Auto) Lymph # (Auto) [place] # (Auto) Eos # (Auto) Baso # (Auto) Nucleated RBC % (a uto) Nucleated RBCs # Sodium Potassium Chloride Carbon Dioxide Anion Gap BUN Creatinine GFR Calculation Glucose Calculated Osmolal ity Uric Acid Calcium Total Bilirubin AST ALT Alkaline Phosphata se Total Protein Albumin Globulin Insulin-like GF I Negative Urine Color Urine Appearance Urine pH Ur Specific Gravit y Urine Protein Urine Glucose (UA) Urine Ketones Urine Blood Urine Nitrate Urine Bilirubin Urine Urobilinogen Ur Leukocyte Chanel ase Urine RBC Urine WBC Ur Squamous Epith Cells Amorphous Sediment Urine Bacteria Hyaline Casts Urine Mucus U Random Total Pro tein 29 Urine Creatinine 182 Protein/Creatinin Ratio 0.16 Urine Opiates Scre en Negative Ur Barbiturates Sc reen Negative Ur Phencyclidine S crn Negative Ur Amphetamines Sc reen Negative U Benzodiazepines Scrn Negative Urine Cocaine Scre en Negative U Marijuana (THC) Screen Positive H 03/03/20 19:55 WBC 9.5 RBC 3.44 L Hgb 11.4 L Hct 34.2 L MCV 99.4 H MCH 33.1 MCHC 33.3 RDW 14.6 Plt Count 148 MPV 12.6 H Neut % (Auto) 73.2 Lymph % (Auto) 18.4 [place] % (Auto) 7.3 Eos % (Auto) 0.4 Baso % (Auto) 0.2 Neut # (Auto) 6.92 Lymph # (Auto) 1.7 [place] # (Auto) 0.7 Eos # (Auto) 0.0 Baso # (Auto) 0.0 Nucleated RBC % (a uto) 0 Nucleated RBCs # 0.0 Sodium Potassium Chloride Carbon Dioxide Anion Gap BUN Creatinine GFR Calculation Glucose Calculated Osmolal ity Uric Acid Calcium Total Bilirubin AST ALT Alkaline Phosphata se Total Protein Albumin Globulin Insulin-like GF I Urine Color Urine Appearance Urine pH Ur Specific Gravit y Urine Protein Urine Glucose (UA) Urine Ketones Urine Blood Urine Nitrate Urine Bilirubin Urine Urobilinogen Ur Leukocyte Chanel ase Urine RBC Urine WBC Ur Squamous Epith Cells Amorphous Sediment Urine Bacteria Hyaline Casts Urine Mucus U Random Total Pro tein Urine Creatinine Protein/Creatinin Ratio Urine Opiates Scre en Ur Barbiturates Sc reen Ur Phencyclidine S crn Ur Amphetamines Sc reen U Benzodiazepines Scrn Urine Cocaine Scre en U Marijuana (THC) Screen Vitals: Temperature 98.9 F 03/03/20 21:15 Temperature Source Oral 03/03/20 21:15 Pulse Rate 85 03/04/20 09:25 Respiratory Rate 18 03/03/20 16:25 Respiratory Effort Non-Labored 03/03/20 22:44 Respiratory Depth Normal 03/03/20 22:44 Respiratory Patter n 03/03/20 22:44 Blood Pressure 152/97 03/04/20 09:25 Blood Pressure Corrina n 118 03/04/20 09:25 Pulse Oximetry 98 03/04/20 09:29 Oxygen Delivery Me thod 03/03/20 22:44 Exam: Pre-Anes Outpt Exam: alert, oriented x 3, clear to auscultation bilaterally and regular rate & rhythm Cardiac Studies: No Data to Display
--- NOTE | 2020-03-04 08:15 | ANES.PROC ---
Anesthesia Procedures Procedure/Date: 03/04/20 Epidural: Time Out Performed: Yes Consents Signed: Procedure Consent Consent: requested by attending/covering physician Lumbar Level: L3-L4 Epidural position: sitting Epidural procedure: sterile prep of area, 1% lidocaine to numb the area, 18 g needle, negative for paresthesia passed, neg for paresthesia, test dose given, 1.5% xylocaine 1:200k epi (4ml), placed PCEA, no systemic response, sterile dressing applied, L.U.D. no apparent complications and 0.2% Ropiavacaine @ mls/hr (13)
[2020-03-04] MEDS: lidocaine 2% INJ 20 mL INJECTION (17:27)
[2020-03-04] MEDS: miSOPROStol 200 mcg Tablet 800 MCG PR (17:29)
[2020-03-04] MEDS: oxytocin 30 UNIT/500 ML BAG 600 UNIT IV (17:58)
--- NOTE | 2020-03-04 18:16 | PM.DELIVERY ---
Delivery Note: Date of delivery: March 04, 2020 PRE-DELIVERY DIAGNOSIS: 30-year-old 1 para 0 at 38 weeks and 6 days Gestational hypertension GBS positive Anemia in on iron Tobacco use in Anxiety-not on medication Rubella nonimmune POST-DELIVERY DIAGNOSIS: Vaginal delivery on 03/04/2020 PROCEDURE: Vaginal delivery on 03/04/2020 ANESTHESIA: Epidural anesthesia, local anesthesia with 2% lidocaine DELIVERING PHYSICIAN: Diego Rojas FACOG PRE-DELIVERY COURSE: Ms Hmumel is a 30-year-old 1 para 0 at 38 weeks and 5 days who presented to labor and delivery on 03/03/2020 with reports of possible leaking of fluid. Evaluation was negative however while she was on labor and delivery she was noted to have persistently elevated blood pressures in the 140s to 150s with occasional 160s over 90s. Testing was done and this was negative for preeclampsia however she was given the diagnosis of gestational hypertension and since she was 38 weeks and 5 days decision was made to keep patient for induction based on recommendations. tracing was category 1. Cervix was unfavorable and very hard to reach and patient was very uncomfortable and did not cooperate well during exams. Induction was started at 9 PM with Cytotec placed vaginally. With this she started to have regular contractions every 3 to 5 minutes and made some cervical change to 2 to 3 cm after 4 hours. tracing continued to remain category 1. Since she was tsering on her own she was observed for about 3 hours and made no further cervical change and cervix remained 2 to 3 cm, 60% and -2 station and she was tsering every 3 to 5 minutes. Since she made no further cervical change and was tsering too frequently for Cytotec Pitocin was started at 7 AM and titrated to a maximum of 14 mIU. With this she grew more uncomfortable and made cervical change to 5 cm 60% and -2 station. An epidural was placed and she was more comfortable and it was easier to do exams. tracing continued to remain category 1. Artificial rupture of membranes was performed at 10:37 AM on 03/05/2020 with clear fluid at which time her cervix was 5 cm 60% and -2 station and well applied. After this she made good cervical change and was fully dilated at 4:05 PM and allowed to labor down. Blood pressures during this time were largely elevated with only occasional values in the severe range that resolved spontaneously and she had not Needed any antihypertensive medication. DELIVERY NOTE: She was set up in lithotomy position and was pushing effectively. She was noted to be +3 station and continued pushing well. She was noted to start having tearing on the perineum and the perineum was noted to be tight and short and decision was made to do an episiotomy. Right mediolateral episiotomy was cut after infiltrating this area with 2% lidocaine and ensuring adequate analgesia. The head delivered in MORGAN position, no nuchal cord was present. The shoulders and rest of the body followed with her next push. The baby's mouth and nose were suctioned and the baby was placed on the mother's belly. Once cord pulsations stopped the cord was clamped and cut. The placenta delivered spontaneously intact with membranes and was discarded. The fundus was noted to be firm and well contracted however the lower uterine segment remained boggy and collected with clots. 800 mcg of Cytotec was placed per rectum and uterine massage was done for about 5 to 6 minutes and the lower uterine segment tone improved a little. A second bag of Pitocin was also used. The vagina and cervix were inspected and no cervical or sulcal lacerations were noted. The perineum showed 2 first-degree vaginal lacerations in addition to the right mediolateral episiotomy. These were all repaired in the usual fashion in a continuous interlocking stitch. Good hemostasis and reapproximation was obtained. The fundus and lower uterine segment were evaluated once more and improvement in tone was noted. Baby girl, Bakari Cardoso born at 5:22 PM on 03/[birth year]/2020 with 8/9, weighing 7 pounds 0 ounces, 3165 g, 19 long. Placenta was delivered spontaneously intact with membranes at 5:25 PM. Cotyledons were intact , eccentrically inserted umbilical cord with 3 vessels noted. Estimated blood loss 400 mL. Complications-none, both baby and mother were left to recovery in a stable condition. Coding Level of Care Code Acute Machine Pan Greaser for Derrick Kennedy
[2020-03-04] MEDS: HYDROcodone-acetaminophen 5-325 mg Tablet PO (18:54)
[2020-03-04] MEDS: benzocaine-menthol 78 gm Canister 1 SPRAY TOPICAL (18:57)
[2020-03-04] MEDS: lanolin oint 7 gm 1 APPLIC TOPICAL (18:57)
[2020-03-04] MEDS: albuterol 8 gm MDI 2 PUFF INHALATION (20:08)
[2020-03-04] MEDS: hyDRALAzine 20 mg/mL INJ 1 mL 5 MG IVP (21:11)
[2020-03-05] VITALS (8 sets, daily range): BP systolic 132–170; BP diastolic 72–106; PULSE 72–93; RESP 16–18; TEMP 36.7–36.8; O2SAT 99
[2020-03-05] MEDS: HYDROcodone-acetaminophen 5-325 mg Tablet PO ×4 (01:05→20:00)
[2020-03-05 06:47] LABS: Hematocrit 28.4 % (37.0-47.0); Hemoglobin 9.5 g/dL (11.5-15.3); Mean Corpuscular HGB Conc 33.5 g/dL (30.0-36.0); Mean Corpuscular Hemoglobin 33.1 pg (28.0-34.0); Platelet Count 110 10^3/cmm (130-400); Red Blood Count 2.87 10^6/uL (4.1-5.3); Red Cell Distribution Width 14.4 % (12.1-15.1); White Blood Count 9.5 10^3/uL (4.0-10.0)
[2020-03-05 07:51] LABS: Coronavirus Lab Test PTC Negative
--- NOTE | 2020-03-05 08:12 | PM.PN ---
Subjective Subjective: Interval history: Subjective- Ms. Hummel is doing okay today. Still has a lot of perianal discomfort and is taking pain medication. Is using ice packs however has not had a sitz bath as yet. She denies any headaches, blurry vision, scotoma. She is breast-feeding and is currently with a executive talent acquisition consultant. She denies headaches, blurry vision, scotoma, fever, chills, shortness of breath and chest pain. The nebulizer treatment and albuterol has been helping her and she is asymptomatic at this time. OBJECTIVE/PHYSICAL EXAM: Gen.: No acute distress Heart: S1-S2 heard, regular rate and rhythm Lungs: Clear to auscultation bilaterally Abdomen: Soft, fundus firm below umbilicus Legs: No calf tenderness, +1 bilateral pitting pedal edema. ASSESSMENT AND PLAN: 30-year-old 1 para 0 status post vaginal delivery -Perineal discomfort-encourage sitz bath's p.o. pain medication, Dermoplast pre-and ice packs-encourage ambulation -COVID testing negative today -P.o. pain medication -supervisor home energy consultant -Blood pressure is elevated however not in the severe range anymore. Will reassess towards the end of the day and see if she needs to be medication. -Depending on her blood pressures to anticipate discharge home on day 2 or day 3. Vitals/I&O/Wt Last Vital Signs Temp 98.1 F 03/05/20 07:43 Pulse 93 03/05/20 07:43 Resp 18 03/05/20 07:43 BP 154/99 03/05/20 07:43 Pulse Ox 99 03/05/20 01:20 03/04/20 03/05/20 03/05/20 22:59 06:59 14:59 Intake Total 576.833 / 1591.667 Output Total 1200 / 1200 500 / 1700 Balance -623.167 / 391.667 -500 / -108.333 Weight last 48 hrs Weight 164 lb Physical Exam Urinary Catheter Management^: Kiran: Cath Placed During This Visit: yes, but has since been removed by the nurse Reason for Continuing Indwelling Catheter: Not indwelling catheter Urinary Catheter Date of Insertion: 03/04/20 Urinary Catheter Time of Insertion: 09:50 Date Urinary Catheter Removed: 03/04/20 Time Urinary Catheter Discontinued: 16:10 Data : 03/05/20 06:15 03/03/20 17:10 Attestations Medical Necessity Statement*: Patient needs to stay to recover from delivery and gestational hypertension for at least 2 more midnights Coding Level of Care Code Acute Federal Aid Coordinator for Edgardg Marcia
[2020-03-05] MEDS: prenatal vitamin Capsule 1 CAP PO (09:09)
[2020-03-05] MEDS: docusate sodium 100 mg Capsule PO ×2 (09:10→19:26)
--- NOTE | 2020-03-05 09:47 | PC.RESP ---
SMOKING CESSATION INFORMATION SENT TO PATIENT.
--- NOTE | 2020-03-05 11:36 | ANE.PACU2 ---
Inpatient post-anesthesia follow up: Airway intact: Yes Vital signs: Temperature 98.1 F Pulse Rate 93 Respiratory Rate 18 Blood Pressure 154/99 Pulse Oximetry 99 Oxygen Delivery Me thod Room Air Oxygen Flow Rate Fraction of Inspir ed Oxygen Hydration adequate: Yes Nausea and vomiting: No Pain level: 4 Mental status: Baseline Additional Comments: no signs of infection at epidural site, no numbness/weakness of lower extremities, up and walking, no headaches, urinating ok without parada
[2020-03-05] MEDS: labetalol 200 mg Tablet 100 MG PO ×2 (12:17→19:26)
[2020-03-05] MEDS: labetalol 5 mg/mL SDV 20mL 10 MG IVP (12:17)
[2020-03-06 01:00] VITALS: BP 151/88; PULSE 77; RESP 18; TEMP 36.6; O2SAT 98
[2020-03-06] MEDS: HYDROcodone-acetaminophen 5-325 mg Tablet PO ×3 (02:57→15:33)
[2020-03-06 04:30] VITALS: BP 152/97; PULSE 87; RESP 16; TEMP 36.8; O2SAT 98
--- NOTE | 2020-03-06 04:54 | PM.DCS ---
Discharge Providers Date of Admission: 03/03/20 19:00 Date of Discharge: March 06, 2020 Attending Provider at Admission: Diego Giraldo MD Attending Provider at Discharge: Diego Giraldo MD Reason for Visit Reason for Visit: possible rupture of membranes Hospital Course Discharge Summary: PRE-DELIVERY DIAGNOSIS: 30-year-old 1 para 0 at 38 weeks and 6 days Gestational hypertension GBS positive Anemia in on iron Tobacco use in Anxiety-not on medication Rubella nonimmune POST-DELIVERY DIAGNOSIS: Vaginal delivery on 03/04/2020 PROCEDURE: Vaginal delivery on 03/04/2020 ANESTHESIA: Epidural anesthesia, local anesthesia with 2% lidocaine DELIVERING PHYSICIAN: Diego Rojas FACOG PRE-DELIVERY COURSE: Ms Hummel is a 30-year-old 1 para 0 at 38 weeks and 5 days who presented to labor and delivery on 03/03/2020 with reports of possible leaking of fluid. Evaluation was negative however while she was on labor and delivery she was noted to have persistently elevated blood pressures in the 140s to 150s with occasional 160s over 90s. Testing was done and this was negative for preeclampsia however she was given the diagnosis of gestational hypertension and since she was 38 weeks and 5 days decision was made to keep patient for induction based on recommendations. tracing was category 1. Cervix was unfavorable and very hard to reach and patient was very uncomfortable and did not cooperate well during exams. Induction was started at 9 PM with Cytotec placed vaginally. With this she started to have regular contractions every 3 to 5 minutes and made some cervical change to 2 to 3 cm after 4 hours. tracing continued to remain category 1. Since she was tsering on her own she was observed for about 3 hours and made no further cervical change and cervix remained 2 to 3 cm, 60% and -2 station and she was tsering every 3 to 5 minutes. Since she made no further cervical change and was tsering too frequently for Cytotec Pitocin was started at 7 AM and titrated to a maximum of 14 mIU. With this she grew more uncomfortable and made cervical change to 5 cm 60% and -2 station. An epidural was placed and she was more comfortable and it was easier to do exams. tracing continued to remain category 1. Artificial rupture of membranes was performed at 10:37 AM on 03/05/2020 with clear fluid at which time her cervix was 5 cm 60% and -2 station and well applied. After this she made good cervical change and was fully dilated at 4:05 PM and allowed to labor down. Blood pressures during this time were largely elevated with only occasional values in the severe range that resolved spontaneously and she had not Needed any antihypertensive medication. DELIVERY NOTE: She was set up in lithotomy position and was pushing effectively. She was noted to be +3 station and continued pushing well. She was noted to start having tearing on the perineum and the perineum was noted to be tight and short and decision was made to do an episiotomy. Right mediolateral episiotomy was cut after infiltrating this area with 2% lidocaine and ensuring adequate analgesia. The head delivered in MORGAN position, no nuchal cord was present. The shoulders and rest of the body followed with her next push. The baby's mouth and nose were suctioned and the baby was placed on the mother's belly. Once cord pulsations stopped the cord was clamped and cut. The placenta delivered spontaneously intact with membranes and was discarded. The fundus was noted to be firm and well contracted however the lower uterine segment remained boggy and collected with clots. 800 mcg of Cytotec was placed per rectum and uterine massage was done for about 5 to 6 minutes and the lower uterine segment tone improved a little. A second bag of Pitocin was also used. The vagina and cervix were inspected and no cervical or sulcal lacerations were noted. The perineum showed 2 first-degree vaginal lacerations in addition to the right mediolateral episiotomy. These were all repaired in the usual fashion in a continuous interlocking stitch. Good hemostasis and reapproximation was obtained. The fundus and lower uterine segment were evaluated once more and improvement in tone was noted. Baby girl, Bakari Cardoso born at 5:22 PM on 03/04/2020 with 8/9, weighing 7 pounds 0 ounces, 3165 g, 19 long. Placenta was delivered spontaneously intact with membranes at 5:25 PM. Cotyledons were intact , eccentrically inserted umbilical cord with 3 vessels noted. Estimated blood loss 400 mL. Complications-none, both baby and mother were left to recovery in a stable condition. HOSPITAL COURSE: She underwent an uncomplicated vaginal delivery 03/04/2020 . She did well on day 0 and was ambulating well, tolerating regular diet, voiding freely, passing flatus. She was breast-feeding without difficulty and bonding well with her daughter. Pain was well-controlled with by mouth pain medication. She denied nausea, vomiting, fever, chills, shortness of breath, leg pain. She had moderate vaginal bleeding. On day # 1 she continued to do well with stable vital signs and stable hemoglobin at 9.5. Although blood pressure was stable she continued to have elevations and was started on labetalol 100 mg twice daily. On day #2 her blood pressures were better but still elevated and labetalol was increased to 200 mg twice daily and she had no hypotensive episodes. With this her blood pressures remained largely in the 140s.. She was discharged home on day 2 in a stable condition. Pain was controlled with p.o. pain medication. . Warning signs for endometritis, mastitis, DVT/PE were reviewed with her. Post delivery activity restrictions were also reviewed with her at all her questions were answered to her satisfaction. She plans on using control pills for contraception which will be started at her 6-week visit. -She was discharged home on 15 tablets of hydrocodone 1 every 6 hours to be alternated with ibuprofen as well as labetalol 200 mg twice daily for elevated blood pressure. Preeclamptic precautions and ER precautions reviewed with patient. Patient to monitor blood pressure twice daily and bring this to her next visit EXAM AT DISCHARGE: Gen.: No acute distress Heart: S1-S2 heard, regular rate and rhythm Lungs: Clear to auscultation bilaterally Abdomen: Soft, fundus firm below umbilicus. Legs: No calf tenderness, +1 bilateral pitting pedal edema. CONDITION AT DISCHARGE: Stable Physical Exam Urinary Catheter Management^: Kiran: Cath Placed During This Visit: yes, but has since been removed by the nurse Reason for Continuing Indwelling Catheter: Not indwelling catheter Urinary Catheter Date of Insertion: 03/04/20 Urinary Catheter Time of Insertion: 09:50 Date Urinary Catheter Removed: 03/04/20 Time Urinary Catheter Discontinued: 16:10 Discharge Data Vitals: Last Vital Signs Temp 98.0 F 03/06/20 15:25 Pulse 87 03/06/20 15:25 Resp 15 03/06/20 15:25 BP 159/104 03/06/20 15:25 Pulse Ox 99 03/06/20 09:47 Discharge Plan Discharge Patient Disposition: Home Prescriptions: Continued PNV #[id number] acid-dha 35 mg iron-5 mg iron-1 mg capsule 1 cap PO DAILY Qty: 30 RF: 4 ascorbate calcium (vitamin C) 500 mg tablet 500 mg PO DAILY RF: 0 ferrous sulfate 325 mg (65 mg iron) tablet,delayed release (DR/EC) 325 mg PO DAILY RF: 0 Discharge Orders: Discharge Order (Routine); Ordered 03/06/20 Ordered By: Diego Giraldo Referrals: Diego Giraldo MD [Physician] - 04/17/20 9:45 am (Blood pressure check on Tuesday at 3:[address] Rojas for a blood pressure check. ) Patient Instructions: Iron Supplements (By mouth), Vitamins (By mouth), Lanolin (On the skin), Breast Care for the Breast Feeding Mother (GEN), Caring for Your Breastfed Baby (GEN), OB Discharge Report, OB Food/Drug Interaction Guide, OB Home Care, OB Vaginal Deliveries, OB Vaginal Deliveries - [facility] Activity Restrictions/Additional Instructions: Document blood pressures 2 times a day, and keep a log of your blood pressures. Bring blood pressure log to 1 week follow up appointment. Discharge Date/Time: 03/06/20 15:57 Discharge Attestations Time Spent in Discharge Care*: greater than 30 min Quality Metrics Clinical Quality Measures During this hospital stay, did patient experience: None Coding Level of Care Code Acute Strategy Associate for Derrick Kennedy
[2020-03-06] MEDS: prenatal vitamin Capsule 1 CAP PO (08:16)
[2020-03-06] MEDS: docusate sodium 100 mg Capsule PO (08:16)
[2020-03-06] MEDS: labetalol 200 mg Tablet PO (08:17)
[2020-03-06 09:47] VITALS: PULSE 106; RESP 15; O2SAT 99
[2020-03-06 10:55] VITALS: BP 153/90; PULSE 98; RESP 16; TEMP 36.9
[2020-03-06 14:43] VITALS: BP 152/97; PULSE 87; RESP 16; TEMP 36.8
--- NOTE | 2020-03-06 14:55 | PC.NURSE ---
Orders received from Dr. Rojas for patient's prescription information to be called in. -800 mg motrin PO Q8H as needed for pain, #30, no refills. -100 mg colace PO BID #30, no refills -325 mg ferrous sulfate PO BID, #60, no refills. -200 mg labetalol PO BID #28, no refills. Instruct patient to take blood pressures at home, two times a day and bring blood pressure log to appointment.
[2020-03-06 15:25] VITALS: BP 159/104; PULSE 87; RESP 15; TEMP 36.7
[2020-03-06] MEDS: measles,mumps,rubella pf Vial (w/diluent) 0.5 ML SUBCUT (15:45)
== END 2020-03-06 15:57 | disposition home or self-care (01) | DRG 807 ==
LOC: OPOB 19:36 → OBGYN 19:36
PROVIDERS: Obstetrics & Gynecology; Admitting Provider Obstetrics & Gynecology; PCP Nurse Practitioner Family; Visit Provider Obstetrics & Gynecology
DX: O13.4 Gestational [pregnancy-induced] hypertension without significant proteinuria, complicating childbirth (principal); Z37.0 Single live birth; O99.344 Other mental disorders complicating childbirth; F41.9 Anxiety disorder, unspecified; O99.324 Drug use complicating childbirth; F12.980 Cannabis use, unspecified with anxiety disorder; O99.334 Smoking (tobacco) complicating childbirth; F17.210 Nicotine dependence, cigarettes, uncomplicated; O99.02 Anemia complicating childbirth; D64.9 Anemia, unspecified; O99.824 Streptococcus B carrier state complicating childbirth; O70.0 First degree perineal laceration during delivery; Z3A.38 38 weeks gestation of pregnancy; O75.89 Other specified complications of labor and delivery; J45.909 Unspecified asthma, uncomplicated; F43.10 Post-traumatic stress disorder, unspecified
CPT/HCPCS: 12345; 36415; 51702; 59025; 59409; 80053; 80306; 81001; 82570; 83986; 84112; 84156; 84550; 85025; 85027; 86850; 86900; 87086; 87635; 90707; 94640; 96372; 96375; 98960; 99211; J0290; J0360; J2795; J3490; J3535

== ENCOUNTER 2020-06-17 09:50 | Outpatient (CLI) | payer OTHER, SELFPAY ==
--- NOTE | 2020-06-17 09:30 | XRR_ITS ---
PROCEDURE INFORMATION: Exam: XR Abdomen, 1 View Exam date and time: 06/17/2020 9:59 AM Age: 30 years old Clinical indication: Condition or disease; Kidney or ureter condition; Calculus (stone) in ureter; Prior surgery; Surgery type: Lithotripsy 2018; Additional info: Ureteral stone TECHNIQUE: Imaging protocol: XR of the abdomen. Views: Frontal supine view of the abdomen. 1 View. COMPARISON: CR XR IVP w KUB [id number] 12/08/2019 11:48 AM FINDINGS: Gastrointestinal tract: No dilated gas-filled loops of bowel. Organs: There is right nephrolithiasis. There appear to be least 3 calculi, measuring up to 5 mm in size, not accounting for magnification. There is at least 1 left renal calculus measuring 3 mm in size, not accounting for magnification. No radiopaque ureteral calculi identified. The previously demonstrated distal right ureteral calculus is no longer present. Bones/joints: No acute osseous abnormality. XR/XR KUB [id number] IMPRESSION: Bilateral nephrolithiasis.
== END 2020-06-17 09:51 | disposition home or self-care (01) ==
PROVIDERS: PCP Nurse Practitioner Family; Visit Provider Urology
DX: N20.1 Calculus of ureter (principal); N20.0 Calculus of kidney
CPT/HCPCS: 74018; 81003

== ENCOUNTER → 2020-06-30 10:53 | Outpatient (BNVA) | payer OTHER, SELFPAY | PROVIDERS: PCP Nurse Practitioner Family; Visit Provider Urology | DX: N20.0 Calculus of kidney (principal) | CPT/HCPCS: 80048; 81003; 82131; 82140; 82340; 82436; 82507; 82570; 83735; 83935; 84100; 84300; 84550 ==

== ENCOUNTER 2020-08-13 09:36 | Outpatient (CLI) | payer OTHER, SELFPAY ==
--- NOTE | 2020-08-13 09:30 | XR_ITS ---
WS: [id number] KUB, AP view, 08/13/2020 Clinical Data: BILATERAL RENAL STONES Comparison: KUB, 06/17/2020. Findings: There are small calcifications overlying both kidneys unchanged. There is a 0.4 cm calcification in t he region of the right ureterovesical junction. The remainder the abdomen is unremarkable. There is fecal material throughout colon. XR/XR KUB [id number] Impression: 1. Small calcifications overlying both kidneys. 2. 0.4 cm calcification in the region of the right ureterovesical junction.
== END 2020-08-13 09:37 | disposition home or self-care (01) ==
LOC: RAD 09:40
PROVIDERS: PCP Nurse Practitioner Family; Visit Provider Urology
DX: N20.0 Calculus of kidney (principal)
CPT/HCPCS: 74018; 81003

== ENCOUNTER 2020-08-21 07:26 | Outpatient (CLI) | payer OTHER, SELFPAY ==
--- NOTE | 2020-08-21 07:30 | XR_ITS ---
WS: [id number] XR KUB [id number] REASON FOR EXAM: RENAL STONES FINDINGS: 2 small calculi are identified overlying the right kidney.. Small calculus overlying the upper pole of the left kidney. These findings are unchanged compared to 08/13/2020. There is a calcification, presumed calculus, seen in the right mid pelvis. This was also noted on the previous examination of 08/13/2020. The configuration of this calculus seems altered but this may be due to overlying bowel gas etc. The position is unchanged. XR/XR KUB [id number] IMPRESSION: Stable abnormal examination as above.
== END 2020-08-21 07:27 | disposition home or self-care (01) ==
LOC: RAD 07:28
PROVIDERS: PCP Nurse Practitioner Family; Visit Provider Urology
DX: N20.0 Calculus of kidney (principal)
CPT/HCPCS: 74018; 81003

== ENCOUNTER 2020-09-05 08:29 | Outpatient (CLI) | payer OTHER, SELFPAY ==
--- NOTE | 2020-09-05 08:30 | XR_ITS ---
WS: [id number] KUB, AP view, 09/05/2020 Clinical Data: STONE Comparison: KUB, 08/21/2020. Findings: No abnormal intraabdominal masses are seen. There may be calcifications overlying both kidneys. Ther e is no dilatated small bowel or evidence of obstruction. There is a large amount of fecal material obscuring detail over both kidneys. No calcifications are s een in the true pelvis. XR/XR KUB [id number] Impression: Possible bilateral renal calculi unchanged.
== END 2020-09-05 08:30 | disposition home or self-care (01) ==
LOC: RAD 08:33
PROVIDERS: PCP Nurse Practitioner Family; Visit Provider Urology
DX: N20.0 Calculus of kidney (principal)
CPT/HCPCS: 74018; 81003

== ENCOUNTER 2020-09-22 09:03 | Outpatient (CLI) | payer OTHER, SELFPAY ==
--- NOTE | 2020-09-22 09:00 | XRR_ITS ---
PROCEDURE INFORMATION: Exam: XR Abdomen Exam date and time: 09/22/2020 9:17 AM Age: 30 years old Clinical indication: Condition or disease; Kidney or ureter condition; Calculus (stone) in kidney; Additional info: N20.0 - calculus of kidney TECHNIQUE: Imaging protocol: XR of the abdomen. Views: Frontal supine view of the abdomen. 1 View. COMPARISON: CR XR KUB [id number] 09/05/2020 8:44 AM FINDINGS: Gastrointestinal tract: Unremarkable. No bowel dilation. Organs: Left renal upper pole 1.9 mm calyceal calculus. Right renal calculi (3), the largest in the lateral mid kidney measuring approximately 3.7 mm. No calculi identified over the expected course of the bilateral ureters. Bones/joints: No acute abnormality identified. XR/XR KUB [id number] IMPRESSION: Bilateral renal calyceal lithiasis.
== END 2020-09-22 09:04 | disposition home or self-care (01) ==
PROVIDERS: PCP Nurse Practitioner Family; Visit Provider Urology
DX: N20.0 Calculus of kidney (principal)
CPT/HCPCS: 74018; 81003

== ENCOUNTER 2021-03-24 07:49 | Outpatient (CLI) | payer OTHER, SELFPAY ==
--- NOTE | 2021-03-24 07:45 | XRR_ITS ---
PROCEDURE INFORMATION: Exam: XR Abdomen Exam date and time: 03/24/2021 7:45 AM Age: 31 years old Clinical indication: Condition or disease; Kidney or ureter condition; Calculus (stone) in kidney; Additional info: Renal stones TECHNIQUE: Imaging protocol: XR of the abdomen. Views: Frontal supine view of the abdomen. 1 View. COMPARISON: CR XR KUB [id number] 09/22/2020 9:26 AM FINDINGS: Gastrointestinal tract: Nonobstructive bowel gas pattern. Organs: Solid irregular 3 mm calcification seen over the right upper pole, unchanged. No additional calcifications seen over the renal shadows, ureters, or bladder. Bones/joints: Osseous structures unremarkable. XR/XR KUB [id number] IMPRESSION: Suspected 3 mm right upper pole calculus, unchanged. Radiation Dose CTDIVOL = (mGy): DLP = (mGy-cm)
== END 2021-03-24 07:50 | disposition home or self-care (01) ==
LOC: RAD 07:51
PROVIDERS: PCP Nurse Practitioner Family; Visit Provider Urology
DX: N20.2 Calculus of kidney with calculus of ureter (principal)
CPT/HCPCS: 74018; 81003

== ENCOUNTER 2022-03-25 07:03 | Outpatient (CLI) | payer OTHER, SELFPAY ==
--- NOTE | 2022-03-25 07:09 | XR_ITS ---
WS: [id number] KUB, AP view, 03/25/2022 Clinical Data: Ureteral Calculus Comparison: KUB, 03/24/2021 Findings: No abnormal intraabdominal masses are seen. There is no dilatated small bowel or evidence of obstruct ion. There is a small calcification which may overlie the upper pole right kidney. XR/XR KUB [id number] Impression: No change in possible small calcification in the superior pole of the right kid los.
== END 2022-03-25 07:04 | disposition home or self-care (01) ==
PROVIDERS: PCP Family Medicine; Visit Provider Urology
DX: N20.1 Calculus of ureter (principal); N20.0 Calculus of kidney
CPT/HCPCS: 74018; 81003